=== PATIENT | female | born 1995 | race Hispanic/Latino ===

== ENCOUNTER 2018-05-02 22:47 | Emergency (ER) | payer MEDICAID, OTHER ==
[2018-05-02 23:22] LABS: BASOPHILS % (AUTO) 0.4 % (0.0-5.0); EOSINOPHILS % (AUTO) 1.6 % (0.0-8.0); HEMATOCRIT 31.9 % (36-48); LYMPHOCYTES % (AUTO) 18.8 % (21.0-51.0); MEAN CORPUSCULAR HGB CONC 32.8 g/dL (32.0-36.0); MEAN CORPUSCULAR VOLUME 79.1 fL (80-100); NEUTROPHILS % (AUTO) 73.2 % (40.0-77.0); PLATELET COUNT (AUTO) 320 K/uL (130-400); RED BLOOD CELL COUNT(AUTO) 4.02 MIL/uL (4.00-5.50); WHITE BLOOD COUNT (AUTO) 14.2 K/uL (4.8-10.8)
[2018-05-02 23:29] LABS: CREATININE 0.7 mg/dL (0.5-1.5); POTASSIUM 3.4 mmol/L (3.5-5.1)
[2018-05-02 23:32] LABS: APPEARANCE,URINE Cloudy (CLEAR); BILIRUBIN,URINE Negative (NEGATIVE); COLOR,URINE Yellow (YELLOW); GLUCOSE, URINE (UA) Negative (NEGATIVE); KETONES,URINE Negative (NEGATIVE); LEUKOCYTE ESTERASE ,URINE Small (NEGATIVE); NITRATE,URINE Negative (NEGATIVE); OCCULT BLOOD,URINE Trace (NEGATIVE); PROTEIN,URINE Trace (NEGATIVE)
[2018-05-02 23:34] LABS: ALBUMIN 3.3 g/dL (3.5-5.0); BILIRUBIN,TOTAL 0.4 mg/dL (0.2-1.0); TOTAL PROTEIN, SERUM 7.2 g/dL (6.0-8.3)
[2018-05-02 23:37] LABS: HCG,QUAL RESULT NEGATIVE (NEGATIVE)
[2018-05-02 23:42] LABS: BACTERIA,URINE Many /HPF (None Seen); MUCUS,URINE Moderate LPF (None Seen); SQUAMOUS EPITHELIAL CELL,UR Few /HPF (0-2)
[2018-05-03] MEDS ORDERED: LIDOCAINE HCL 2% VISCOUS 15 ML UDCUP ONE (00:26)
[2018-05-03] MEDS ORDERED: MAG HYDROX/AL HYDROX/SIMETH ES 30 ML SUSP UDCUP ONE (00:26)
== END 2018-05-03 00:58 | disposition home or self-care (01) ==
LOC: EDH 22:47
DX: R10.13 Epigastric pain (principal)
CPT/HCPCS: 36415; 71045; 76705; 80053; 81001; 81025; 83690; 85025; 87088

== ENCOUNTER 2018-09-24 22:26 | Emergency (ER) | payer MEDICAID ==
[2018-09-24 23:58] LABS: BASOPHILS % (AUTO) 0.6 % (0.0-5.0); EOSINOPHILS % (AUTO) 1.1 % (0.0-8.0); HEMATOCRIT 33.2 % (36-48); LYMPHOCYTES % (AUTO) 13.2 % (21.0-51.0); MEAN CORPUSCULAR HEMOGLOBIN 26.9 pg (27.0-33.0); MEAN CORPUSCULAR HGB CONC 32.7 g/dL (32.0-36.0); MEAN CORPUSCULAR VOLUME 82.4 fL (80-100); MONOCYTES % (AUTO) 4.6 % (3.0-13.0); NEUTROPHILS % (AUTO) 80.5 % (40.0-77.0); PLATELET COUNT (AUTO) 293 K/uL (130-400); RED BLOOD CELL COUNT(AUTO) 4.03 MIL/uL (4.00-5.50); RED CELL DISTRIBUTION WIDTH 16.6 % (11.0-15.5); WHITE BLOOD COUNT (AUTO) 12.5 K/uL (4.8-10.8)
[2018-09-25 00:04] LABS: CREATININE 0.6 mg/dL (0.5-1.5); POTASSIUM 3.6 mmol/L (3.5-5.1)
[2018-09-25 00:08] LABS: ALBUMIN 3.1 g/dL (3.5-5.0); BILIRUBIN,TOTAL 0.2 mg/dL (0.2-1.0)
[2018-09-25 00:44] LABS: APPEARANCE,URINE Clear (CLEAR); BILIRUBIN,URINE Negative (NEGATIVE); COLOR,URINE Yellow (YELLOW); GLUCOSE, URINE (UA) Negative (NEGATIVE); KETONES,URINE Negative (NEGATIVE); LEUKOCYTE ESTERASE ,URINE Negative (NEGATIVE); NITRATE,URINE Negative (NEGATIVE); OCCULT BLOOD,URINE Negative (NEGATIVE); PH,URINE 8.5 (5.0-8.0); PROTEIN,URINE Negative (NEGATIVE)
== END 2018-09-25 01:16 | disposition left against medical advice (07) ==
LOC: EDH 22:26
DX: O26.891 Other specified pregnancy related conditions, first trimester (principal); R10.13 Epigastric pain; Z3A.10 10 weeks gestation of pregnancy
CPT/HCPCS: 36415; 80053; 81003; 83690; 85025

== ENCOUNTER 2021-03-18 18:27 | Emergency (ER) | payer MEDICAID ==
[~2021-03-18] VITALS: Ht 160 cm; Wt 82.6 kg
[2021-03-18 19:16] VITALS: BP 135/72
[2021-03-18] MEDS ORDERED: PANTOPRAZOLE 40 MG/VIAL IVP ONE (19:30)
[2021-03-18] MEDS ORDERED: ONDANSETRON 4MG INJ IVP ONE (19:30)
[2021-03-18] MEDS ORDERED: 0.9%NACL 1000ML 1,000 ML IV ONE (19:30)
[2021-03-18] MEDS ORDERED: DICYCLOMINE 20MG (10MG/ML) AMP IM ONE (19:30)
[2021-03-18 19:58] LABS: APPEARANCE,URINE Clear (CLEAR); BILIRUBIN,URINE Negative (NEGATIVE); COLOR,URINE Yellow (YELLOW); GLUCOSE, URINE (UA) Negative (NEGATIVE); KETONES,URINE Trace mg/dL (NEGATIVE); LEUKOCYTE ESTERASE ,URINE Small (NEGATIVE); NITRATE,URINE Negative (NEGATIVE); OCCULT BLOOD,URINE Negative (NEGATIVE); PROTEIN,URINE Negative (NEGATIVE)
[2021-03-18 20:00] LABS: HCG,QUAL RESULT NEGATIVE (NEGATIVE)
[2021-03-18 20:02] LABS: BASOPHILS % (AUTO) 0.4 % (0.0-5.0); EOSINOPHILS % (AUTO) 1.2 % (0.0-8.0); HEMATOCRIT 28.5 % (36-48); LYMPHOCYTES % (AUTO) 21.2 % (21.0-51.0); MEAN CORPUSCULAR HGB CONC 30.5 g/dL (32.0-36.0); MEAN CORPUSCULAR VOLUME 78.5 fL (79-99); MONOCYTES % (AUTO) 6.4 % (3.0-13.0); NEUTROPHILS % (AUTO) 70.4 % (40.0-77.0); PLATELET COUNT (AUTO) 283 K/uL (130-400); RED BLOOD CELL COUNT(AUTO) 3.63 MIL/uL (4.00-5.50); RED CELL DISTRIBUTION WIDTH 14.5 % (11.0-15.5)
[2021-03-18 20:02] LABS: BACTERIA,URINE Few /HPF (None Seen)
[2021-03-18 20:03] LABS: MUCUS,URINE Few LPF (None Seen); SQUAMOUS EPITHELIAL CELL,UR Few /HPF (0-2)
[2021-03-18 20:12] LABS: CREATININE 0.7 mg/dL (0.5-1.5); POTASSIUM 3.7 mmol/L (3.5-5.1)
[2021-03-18 20:16] LABS: ALBUMIN 3.5 g/dL (3.5-5.0); BILIRUBIN,TOTAL 0.4 mg/dL (0.2-1.0); TOTAL PROTEIN, SERUM 7.3 g/dL (6.0-8.3)
[2021-03-18] MEDS ORDERED: IOHEXOL-350 75 ML VIAL IV ONE (20:43)
[2021-03-18] MEDS ORDERED: ACET-3194 PO (21:51)
[2021-03-18] MEDS ORDERED: DICY20TA2 PO (21:51)
[2021-03-18] MEDS ORDERED: PANT40TA54 PO (21:51)
[2021-03-18] MEDS ORDERED: SULF1TAB42 PO (21:51)
[2021-03-18] MEDS ORDERED: ONDA4TAB4 PO (21:51)
[2021-03-18 22:14] VITALS: BP 125/70
== END 2021-03-18 22:16 | disposition home or self-care (01) ==
LOC: EDH 18:27
DX: K80.70 Calculus of gallbladder and bile duct without cholecystitis without obstruction (principal); D64.9 Anemia, unspecified; N39.0 Urinary tract infection, site not specified; N83.209 Unspecified ovarian cyst, unspecified side; Z79.899 Other long term (current) drug therapy; Z98.84 Bariatric surgery status
CPT/HCPCS: 36415; 74177; 76705; 80053; 81001; 81025; 83690; 85025; 87077; 87088; 87186; 96361; 96372; 96374; 96375; 99285; J0500; J2405; J3490; J7030; S0164; C9113; Q9967

== ENCOUNTER 2024-07-22 16:21 | Emergency (ER) | payer SELFPAY ==
[~2024-07-22] VITALS: Ht 154.9 cm; Wt 85.7 kg
[~2024-07-22 16:21] MED LIST: ACET-3194 PO; DICY20TA2 PO; ONDA4TAB4 PO; PANT40TA54 PO; SULF1TAB42 PO
[2024-07-22 17:08] LABS: BASOPHILS # (AUTO) 0.05 K/uL (0.00-0.20); BASOPHILS % (AUTO) 0.4 % (0.0-5.0); EOSINOPHILS # (AUTO) 0.23 K/uL (0.00-0.70); EOSINOPHILS % (AUTO) 1.9 % (0.0-8.0); HEMATOCRIT 34.1 % (36-48); IMMATURE GRANULOCYTE ABSOLUTE 0.03 K/uL (0-1); LYMPHOCYTES # (AUTO) 1.5 K/uL (1.0-4.8); LYMPHOCYTES % (AUTO) 12.6 % (21.0-51.0); MEAN CORPUSCULAR HEMOGLOBIN 26.3 pg (27.0-33.0); MEAN CORPUSCULAR HGB CONC 31.7 g/dL (32.0-36.0); MEAN CORPUSCULAR VOLUME 83.2 fL (79-99); MONOCYTES # (AUTO) 0.7 K/uL (0.1-1.0); MONOCYTES % (AUTO) 5.8 % (3.0-13.0); NEUTROPHILS # (AUTO) 9.6 K/uL (1.8-7.7); NEUTROPHILS % (AUTO) 79.1 % (40.0-77.0); PLATELET COUNT (AUTO) 348 K/uL (130-400); RED CELL DISTRIBUTION WIDTH 14.6 % (11.0-15.5); WHITE BLOOD COUNT (AUTO) 12.2 K/uL (4.8-10.8)
[2024-07-22 17:10] LABS: APPEARANCE,URINE CLEAR (CLEAR); BILIRUBIN,URINE NEGATIVE (NEGATIVE); COLOR,URINE LIGHT-YELLOW (YELLOW); GLUCOSE, URINE (UA) NEGATIVE (NEGATIVE); KETONES,URINE 10 mg/dL (NEGATIVE); LEUKOCYTE ESTERASE ,URINE 500 Leu/uL (NEGATIVE); NITRATE,URINE NEGATIVE (NEGATIVE); OCCULT BLOOD,URINE SMALL (NEGATIVE); PH,URINE 6.5 (5.0-8.0); PROTEIN,URINE 10 mg/dL (NEGATIVE); UROBILINOGEN,URINE 0.2 mg/dL (0.2-1.0)
[2024-07-22 17:11] LABS: ADD UA MICROSCOPIC YES
[2024-07-22 17:15] LABS: CREATININE 0.7 mg/dL (0.5-1.0); POTASSIUM 3.7 mmol/L (3.5-5.1)
[2024-07-22 17:17] LABS: HCG,QUALITATIVE URINE NEGATIVE (NEGATIVE)
[2024-07-22 17:19] LABS: BACTERIA,URINE RARE /HPF (None Seen); MUCUS,URINE RARE LPF (None Seen); SQUAMOUS EPITHELIAL CELL,UR RARE /HPF (0-2); YEAST,URINE BUDDING FEW /HPF (None Seen)
[2024-07-22 17:26] LABS: B-TYPE NATRIURETIC PEPTIDE 7 pg/mL (0-100)
--- NOTE | 2024-07-22 17:58 | HMCIMG ---
INDICATION: CHEST PAIN TECHNIQUE: CHEST 1VW COMPARISON: 05/02/2018 FINDINGS/IMPRESSION: No acute consolidation or pleural effusion. Cardiac silhouette is within normal limits. Mild degenerative changes of the spine. The visualized upper abdomen appears unremarkable.
--- NOTE | 2024-07-22 19:16 | ERN ---
ED Note History of Present Illness Stated Complaint: CHEST PAINS,SOB,NUMBNESS TO LEFT ARM Chief Complaint: Chest Pain Time Seen by MD: 16:53 Time Seen by Midlevel: 17:00 Dictation: 28-year-old female with a history of seizures and anemia coming in complaining of chest pain, that started couple of days ago. Patient has a history of gastric sleeve. States she has felt little nauseous. States he is currently taking antibiotics for her UTI. Denies any fevers, vomiting, headaches, diarrhea, constipation. Allergies: Coded Allergies: No Known Allergies (Unverified Allergy, Unknown, 03/18/21) Home Meds Active Scripts Acetaminophen (Acetaminophen) 650 Mg Tablet.er, 650 MG PO TID for 5 Days, #15 TAB Prov:JOSÉ BROWN 03/18/21 Dicyclomine HCl (Bentyl) 20 Mg Tab, 20 MG PO BID for 5 Days, #10 TAB Prov:JOSÉ BROWN 03/18/21 Pantoprazole Sodium (Pantoprazole Sodium) 40 Mg Tablet.dr, 40 MG PO DAILY, #14 TAB Prov:JOSÉ BROWN 03/18/21 Ondansetron HCl (Zofran) 4 Mg Tablet, 4 MG PO Q8H PRN for NAUSEA/VOMITING for 3 Days, #9 TAB 0 Refills Prov:JOSÉ BROWN 03/18/21 Sulfamethoxazole/Trimethoprim (Bactrim Ds Tablet) 1 Each Tablet, 1 TAB PO BID for 10 Days, #20 TAB 0 Refills Prov:JOSÉ BROWN 03/18/21 Past Medical History Past Medical History: Anemia, Anxiety, Seizure Additional Past Medical Hx: GALLSTONES Surgical History: Surgical History Other: GASTRIC SLEEVE Social History: Negative LMP: Jul 19, 2024 Review of System Dictation Constitutional: Negative for fever,chills, and weight loss Eyes: Negative for injury, pain,redness, and discharge ENT: Negative for injury,pain or swelling Cardiovascular: Positive for chest pain, no palpitations, and no edema Respiratory: Negative for shortness of breath, cough, and wheezing, Abdomen/GI: Negative for abdominal pain, nausea, vomiting, diarrhea, and constipation Back: Negative for injury and pain : Negative for injury, bleeding and discharge MS/Extremity: Negative for injury and deformity Skin: Negative for rash, and discoloration Neuro: Negative for headache, weakness, numbness, tingling, and seizure Psych: Negative for suicide ideation, homicidal ideation, and hallucinations Review of Systems: was completed Initial Vital Sign VS Vital Signs Date Time Temp Pulse Resp B/P (MAP) Pulse Ox O2 Delivery O2 Flow Rate FiO2 07/22/24 16:45 97.9 73 18 114/81 100 Room Air 0 Physical Exam Dictation General: awake, alert, NAD Head/Face: Normocephalic, atraumatic Eyes: PERRL, EOMI, vision at baseline ENT: oral cavity clear, TMs clear, no signs of infection Neck: Trachea midline, supple, no nuchal rigidity Cardiovascular: RRR, normal S1/S2, No MRGs, no JVD Respiratory: CTAB, no respiratory distress, No rales or wheezes Abdomen: Soft, non-tender, non-distended, normal bowel sounds, no guarding or rebound. Skin: Warm, dry, normal turgor, no rash MS/Extremity: Pulses equal, no cyanosis, neurovascular intact, FROM Neuro: COAx4, GCS 15, strength 5/5, CN 2-12 intact, normal cerebellar exam, normal gait, Psych: Normal behavior, mood, and affect normal Results (Laboratory/Radiology) Laboratory/Radiology Laboratory Tests Test 07/22/24 16:59 07/22/24 17:23 White Blood Count 12.2 K/uL (4.8-10.8) H Red Blood Count 4.10 MIL/uL (4.00-5.50) Hemoglobin 10.8 g/dL (12.0-16.0) L Hematocrit 34.1 % (36-48) L Mean Corpuscular Volume 83.2 fL (79-99) Mean Corpuscular Hemoglobin 26.3 pg (27.0-33.0) L Mean Corpuscular Hemoglobin Concent 31.7 g/dL (32.0-36.0) L Red Cell Distribution Width 14.6 % (11.0-15.5) Platelet Count 348 K/uL (130-400) Mean Platelet Volume 11.3 fL (7.5-10.5) H Immature Granulocyte % (Auto) 0.2 % (0-1) Neutrophils (%) (Auto) 79.1 % (40.0-77.0) H Lymphocytes (%) (Auto) 12.6 % (21.0-51.0) L Monocytes (%) (Auto) 5.8 % (3.0-13.0) Eosinophils (%) (Auto) 1.9 % (0.0-8.0) Basophils (%) (Auto) 0.4 % (0.0-5.0) Neutrophils # (Auto) 9.6 K/uL (1.8-7.7) H Lymphocytes # (Auto) 1.5 K/uL (1.0-4.8) Monocytes # (Auto) 0.7 K/uL (0.1-1.0) Eosinophils # (Auto) 0.23 K/uL (0.00-0.70) Basophils # (Auto) 0.05 K/uL (0.00-0.20) Absolute Immature Granulocyte (auto 0.03 K/uL (0-1) Nucleated Red Blood Cells 0.0 % (0.0-0.19) Urine Color LIGHT-YELLOW (YELLOW) Urine Appearance CLEAR (CLEAR) Urine pH 6.5 (5.0-8.0) Urine Specific [place] 1.030 (1.001-1.031) Urine Protein 10 mg/dL (NEGATIVE) H Urine Glucose (UA) NEGATIVE mg/dL (NEGATIVE) Urine Ketones 10 mg/dL (NEGATIVE) H Urine Occult Blood SMALL (NEGATIVE) H Urine Nitrate NEGATIVE (NEGATIVE) Urine Bilirubin NEGATIVE mg/dL (NEGATIVE) Urine Urobilinogen 0.2 mg/dL (0.2-1.0) Urine Leukocyte Esterase 500 Mamta/uL (NEGATIVE) H Urine RBC 11-25 /HPF (0-1) H Urine WBC 11-25 /HPF (0-1) H Urine Squamous Epithelial Cells RARE /HPF (0-2) Urine Bacteria RARE /HPF (None Seen) Urine Yeast FEW /HPF (None Seen) Urine HCG, Qualitative NEGATIVE (NEGATIVE) Sodium Level 141 mmol/L (136-145) Potassium Level 3.7 mmol/L (3.5-5.1) Chloride Level 103 mmol/L (101-111) Carbon Dioxide Level 31 mmol/L (21-32) Blood Urea Nitrogen 21 mg/dL (7-18) H Creatinine 0.7 mg/dL (0.5-1.0) Glomerular Filtration Rate Calc 122 mL/min (>90) Random Glucose 86 mg/dL (70-105) Total Calcium 8.6 mg/dL (8.5-10.1) Total Creatine Kinase 44 U/L (21-232) B-Type Natriuretic Peptide 7 pg/mL (0-100) Troponin I < 0.05 ng/mL (0.00-0.05) Labs Reviewed?: Yes EKG Comment: EKG shows sinus rhythm at a rate of 66. No STEMI interpreted by ER MD ED Course ED Course Orders Procedure Category Date Status Time Vital Signs Per CPOE 07/22/24 Transmitted Routine 16:51 B-Type Natriuretic LAB 07/22/24 Complete Peptide 16:51 Chest 1vw RAD 07/22/24 Resulted 16:51 12 Lead Ekg Tracing- EKG 07/22/24 Logged Technical 16:51 Oxygen By Nc/Pulse Ox CPOE 07/22/24 Transmitted 16:51 Maintain Iv CPOE 07/22/24 Transmitted 16:51 Iv Insertion CPOE 07/22/24 Transmitted 16:51 Cardiac Monitoring CPOE 07/22/24 Transmitted 16:51 Pulse Oximetry With CPOE 07/22/24 Transmitted Vs And Prn 16:51 Cbc With Differential LAB 07/22/24 Complete 16:51 Activity: Br W/Brp CPOE 07/22/24 Transmitted With Assist 16:51 Creatine Kinase, Total LAB 07/22/24 Complete 16:51 Urinalysis Profile LAB 07/22/24 Complete 16:51 Troponin Poc Order LAB 07/22/24 Complete Only 16:51 Bedside Troponin-I LAB.ER 07/22/24 In Process (Poc) 16:51 Basic Metabolic Panel LAB 07/22/24 Complete 16:51 ,Urine Test LAB 07/22/24 Complete 16:51 Culture Urine BETTIE 07/22/24 In Process 17:12 Vital Signs Date Time Temp Pulse Resp B/P (MAP) Pulse Ox O2 Delivery O2 Flow Rate FiO2 07/22/24 16:45 97.9 73 18 114/81 100 Room Air 0 Medical Decision Making MDM MDM: 28-year-old female with a history of seizures and anemia coming in complain ing of chest pain, that started couple of days ago. Patient has a history of gastric sleeve. States she has felt little nauseous. States he is currently taking antibiotics for her UTI. Denies any fevers, vomiting, headaches, diarrhea, constipation. Blood work is unremarkable. EKGs shows sinus rhythm, troponin is negative. Heart score is 0. Discussed findings with the patient. Educated patient to follow up with PCP in 1-2 days and to continue taking her antibiotic for her UTI. Educated to return to the ER if any symptoms worsen. Patient verbalized understanding, answered all questions. Differential diagnosis: ACS, anxiety, anemia Rationale: Tests considered and ordered secondary to shared decision making include: Previous outside records reviewed: Old ER visits. Risk of complication and/or morbidity or mortality of patient management: None Medications-Per medication reconciliation Need for hospitalization: Patient does not meet criteria for hospitalization. Need for emergency major/minor surgery: No There are no social concerns with this patient. Prescription drug management Prescriptions will include symptomatic care Patient's prior external medical records from other ER visits were reviewed by me as indicated. Prior testing and results from previous visits were reviewed. Prior tests were taken into account with medical decision making and resource utilization, independent historian/historians were used to obtain complete medical history. I independently interpreted the test that were performed, results were reviewed by me and considered findings on radiology if ordered. Medical management and examination interpretation discussions were had by me with other qualified healthcare professionals as indicated for the patient's care. DX & DISP Disposition: Discharge Departure Impression: Primary Impression: Anemia Additional Impressions: Non-cardiac chest pain, UTI (urinary tract infecti on) Condition: Stable Additional Instructions: Follow up with your PCP in 1-2 days. Continue taking Referrals: JESI TRAN MD (PCP) Time of Disposition: 19:31 I have reviewed the case, and I agree with, Diagnosis and Plan HEMAL LAWLER NP Jul 22, 2024 19:16
--- NOTE | 2024-07-22 20:11 | EKG ---
[facility] Test Date: 2024-07-22 Test Time: 16:31:59 Pat Name: NICK GALVEZ Department: [facility] Room: Gender: F Proposal Rep: [id number] : 1995 Requested By: MONIKA PURVIS Order Number: [id number] Reading MD: Soco Wilson Measurements Intervals [place] Rate: 66 P: 56 HI: 138 QRS: 47 QRSD: 96 T: 52 QT: 390 QTc: 409 Interpretive Statements Sinus rhythm No previous ECG available for comparison Electronically Signed On 07-24-2024 16:03:14 [employer]BACK SPECIALIST by Soco Wilson Please click the below link to view image of tracing.
[2024-07-22 20:12] VITALS: BP 138/75; PULSE 68; RESP 16; TEMP 97.9; O2SAT 98
== END 2024-07-22 20:17 | disposition home or self-care (01) ==
LOC: EDH 16:21
DX: R07.89 Other chest pain (principal); N39.0 Urinary tract infection, site not specified; D64.9 Anemia, unspecified; Z79.899 Other long term (current) drug therapy; Z98.890 Other specified postprocedural states
CPT/HCPCS: 36415; 71045; 80048; 81001; 81025; 82550; 83880; 84484; 85025; 87086; 93005; 99285

== ENCOUNTER 2024-10-20 19:40 | Emergency (ER) | payer BC ==
[~2024-10-20] VITALS: Ht 170.2 cm; Wt 79.4 kg
--- NOTE | 2024-10-20 19:47 | NUR ---
UA CUP PROVIDED
[2024-10-20] MEDS ORDERED: HYDROcodone/APAP 5/325 1 TAB TABLET PO ONE (20:00)
[2024-10-20 20:06] VITALS: O2SAT 99
--- NOTE | 2024-10-20 20:12 | NUR ---
PATIENT C/O RLQ PAIN WITH EVERY MENSES FOR THE LAST 3 MONTHS. PAIENT STATES THE PAIN SUBSIDES AT THE END OF HER MENSTRUAL CYCLE. PATIENT STATES THE PAIN IS ACCOMPANIED [place] OCCASSIONAL NAUSEA, NONE AT THIS TIME. NO OTHER COMPLAINTS
--- NOTE | 2024-10-20 20:12 | ERN ---
ED Note History of Present Illness Stated Complaint: RIGHT LOWER QUADRANT PAIN Chief Complaint: Abdominal Pain Time Seen by MD: 19:42 Dictation: PATIENT IS A 28-YEAR-OLD FEMALE HERE WITH COMPLAINTS OF RIGHT LOWER QUADRANT/PELVIC PAIN THAT SHE HAS INTERMITTENTLY AFTER EVERY. THAT AFFECTS AMBULATION FOR THE LAST 3-4 MONTHS. NO FEVER NO CHILLS NO NAUSEA VOMITING NO CHANGE IN BOWEL OR BLADDER FUNCTION. SHE STATES IT ALWAYS OCCURS WITH HER MENSES. SHE STATES SHE HAS BEEN ATTEMPTING GET TO SEE HER PRODUCTION CORRUGATOR DOCTOR, DR. INFANTE HAS NOT BEEN SUCCESSFUL. SHE DID SAY SHE SAW HER PRIMARY CARE DOCTOR TODAY WHO DID X-RAYS OF HER HIP AND PELVIS TOLD HER EVERYTHING WAS FINE AND GAVE HER PAIN MEDS. SHE IS HERE FOR FURTHER EVALUATION AND TREATMENT. Allergies: Coded Allergies: No Known Allergies (Unverified Allergy, Unknown, 03/18/21) Home Meds Active Scripts Acetaminophen (Acetaminophen) 650 Mg Tablet.er, 650 MG PO TID for 5 Days, #15 TAB Prov:JOSÉ BROWN 03/18/21 Dicyclomine HCl (Bentyl) 20 Mg Tab, 20 MG PO BID for 5 Days, #10 TAB Prov:JOSÉ BROWN 03/18/21 Pantoprazole Sodium (Pantoprazole Sodium) 40 Mg Tablet.dr, 40 MG PO DAILY, #14 TAB Prov:JOSÉ BROWN 03/18/21 Ondansetron HCl (Zofran) 4 Mg Tablet, 4 MG PO Q8H PRN for NAUSEA/VOMITING for 3 Days, #9 TAB 0 Refills Prov:JOSÉ BROWN 03/18/21 Sulfamethoxazole/Trimethoprim (Bactrim Ds Tablet) 1 Each Tablet, 1 TAB PO BID for 10 Days, #20 TAB 0 Refills Prov:JOSÉ BROWN 03/18/21 Past Medical History Past Medical History: Anemia, Anxiety, Seizure Additional Past Medical Hx: GALLSTONES, OVARIAN CYST Surgical History: Surgical History Other: GASTRIC SLEEVE Social History: Negative LMP: Oct 14, 2024 RN Note Reviewed/Agreed w/PFSH: Yes Review of System Dictation CONSTITUTIONAL: NEGATIVE EXCEPT FOR HPI HEAD/FACE: NEGATIVE EXCEPT FOR HPI EENT: NEGATIVE EXCEPT FOR HPI RESPIRATORY: NEGATIVE EXCEPT FOR HPI GASTROINTESTINAL/ABDOMINAL: NEGATIVE EXCEPT FOR HPI RIGHT ABDOMINAL/PELVIC PAIN RADIATES DOWN LEG GENITOURINARY: NEGATIVE EXCEPT FOR HPI MUSCULOSKELETAL: NEGATIVE EXCEPT FOR HPI INTEGUMENTARY: NEGATIVE EXCEPT FOR HPI NEUROLOGICAL/PSYCH: NEGATIVE EXCEPT FOR HPI HEMATOLOGIC/LYMPHATIC: NEGATIVE EXCEPT FOR HPI ALL SYSTEMS NEGATIVE, EXCEPT NOTED ABOVE. 13 POINT REVIEW OF SYSTEMS ASSESSED AND ALL NEGATIVE EXCEPT FOR ABOVE. Initial Vital Sign VS Vital Signs Date Time Temp Pulse Resp B/P (MAP) Pulse Ox O2 Delivery O2 Flow Rate FiO2 10/20/24 19:41 98.1 78 18 139/85 Room Air 10/20/24 20:06 99 0 21 Physical Exam Dictation VITAL SIGNS REVIEWED GENERAL APPEARANCE: ALERT, ORIENTED X 3, MODERATE ACUTE DISTRESS, WELL DEVELOPED, NOURISHED. HEAD AND FACE: NON-TRAUMATIC. EYES: PERRL, PINK CONJUNCTIVAS, EYELID NO TRAUMA, ANTERIOR CHAMBER WITH ARCUS SENILIS. EARS: PINNAS INTACT AND NO SIGNS OF TRAUMA OR ERYTHEMA EAR CANALS CLEAR AND NO DISCHARGE TM NO ERYTHEMA NOSE: NO DISCHARGE, NO BLEEDING. OROPHARYNX: MOUTH NORMAL, TONGUE PINK, PHARYNX CLEAR,NO ERYTHEMA, TONSILS NO EXUDATES, NO ABSCESSES NOTED, MUCOUS MEMBRANE MOIST NECK: SUPPLE, NON-TENDER, NO THYROMEGALY, NO MASSES, NO JVD, NO BRUITS BREAST:DEFERRED CHEST:NO TENDERNESS, NO CREPITUS, NO PARADOXICAL MOVEMENT, NO RETRACTIONS LUNGS:CLEAR, WELL-VENTILATED, SYMMETRIC, NO RALES, NO WHEEZING, NO RHONCHI, NO STRIDOR, GOOD BREATH SOUNDS BILATERALLY HEART: REGULAR RATE, REGULAR RHYTHM, NO MURMUR, NO GALLOPS VASCULAR: NO PERIPHERAL EDEMA, ABDOMEN: SOFT, POSITIVE BOWEL SOUNDS, NONDISTENDED, NO GUARDING, MODERATE RIGHT LOWER QUADRANT/PELVIC PAIN. RECTAL: DEFERRED GENITAL: DEFERRED NEUROLOGICAL: NORMAL SPEECH, MOTOR FUNCTION INTACT, SENSORY FUNCTION INTACT MUSCULOSKELETAL: NECK NONTENDER, FULL RANGE OF MOTION, BACK NONTENDER, FULL RA NGE OF MOTION, EXTREMITIES: NONTENDER, FULL RANGE OF MOTION SKIN: COLOR PINK, DRY, NO TURGOR, NO RASH, NO LACERATIONS, NO ABRASIONS, NO CONTUSIONS. LYMPHATIC: DEFERRED Results (Laboratory/Radiology) Laboratory/Radiology Laboratory Tests Test 10/20/24 20:12 White Blood Count 8.0 K/uL (4.8-10.8) Red Blood Count 3.64 MIL/uL (4.00-5.50) L Hemoglobin 9.9 g/dL (12.0-16.0) L Hematocrit 31.1 % (36-48) L Mean Corpuscular Volume 85.4 fL (79-99) Mean Corpuscular Hemoglobin 27.2 pg (27.0-33.0) Mean Corpuscular Hemoglobin Concent 31.8 g/dL (32.0-36.0) L Red Cell Distribution Width 14.3 % (11.0-15.5) Platelet Count 266 K/uL (130-400) Mean Platelet Volume 11.4 fL (7.5-10.5) H Immature Granulocyte % (Auto) 0.4 % (0-1) Neutrophils (%) (Auto) 65.1 % (40.0-77.0) Lymphocytes (%) (Auto) 22.6 % (21.0-51.0) Monocytes (%) (Auto) 7.3 % (3.0-13.0) Eosinophils (%) (Auto) 3.7 % (0.0-8.0) Basophils (%) (Auto) 0.9 % (0.0-5.0) Neutrophils # (Auto) 5.2 K/uL (1.8-7.7) Lymphocytes # (Auto) 1.8 K/uL (1.0-4.8) Monocytes # (Auto) 0.6 K/uL (0.1-1.0) Eosinophils # (Auto) 0.30 K/uL (0.00-0.70) Basophils # (Auto) 0.07 K/uL (0.00-0.20) Absolute Immature Granulocyte (auto 0.03 K/uL (0-1) Nucleated Red Blood Cells 0.0 % (0.0-0.19) Sodium Level 140 mmol/L (136-145) Potassium Level 3.8 mmol/L (3.5-5.1) Chloride Level 103 mmol/L (101-111) Carbon Dioxide Level 32 mmol/L (21-32) Blood Urea Nitrogen 17 mg/dL (7-18) Creatinine 0.7 mg/dL (0.5-1.0) Glomerular Filtration Rate Calc 122 mL/min (>90) Random Glucose 85 mg/dL (70-105) Total Calcium 8.6 mg/dL (8.5-10.1) Serum Test, Qualitative NEGATIVE (NEGATIVE) 8/ULTRASOUND DEMONSTRATES NORMAL FOLLICLES, NO OVARIAN MASSES, POSITIVE FLOW TO OVARY. Labs Reviewed?: Yes ED Course ED Course Orders Procedure Category Date Status Time Us Pelvic Non-Ob US 10/20/24 Taken Limited 19:57 Hydrocodone/Apap PHA 10/20/24 Complete 5/325 (Corydon 5/325mg) 20:00 Cbc With Differential LAB 10/20/24 Complete 20:02 Basic Metabolic Panel LAB 10/20/24 Complete 20:02 Testing, LAB 10/20/24 Complete Serum Hcg 20:02 Current Medications Medications (Trade) Dose Ordered Sig/Demetrio Route PRN Reason Start Time Stop Time Status Last Admin Dose Admin Acetaminophen/ Hydrocodone Bitart (NORco 5/325MG) 1 tab ONCE ONCE PO 10/20/24 20:00 10/20/24 20:02 DC Vital Signs Date Time Temp Pulse Resp B/P (MAP) Pulse Ox O2 Delivery O2 Flow Rate FiO2 10/20/24 20:59 98.1 80 18 116/69 Room Air* 0 21 10/20/24 20:06 98.4 70 18 107/69 99 Room Air* 0 21 10/20/24 19:41 98.1 78 18 139/85 Room Air 2108/PATIENT WILL BE DISCHARGED HOME WITH INTERMITTENT RIGHT PELVIC PAIN. SHE WILL BE GIVEN MEDICATIONS FOR PAIN, TOLD TO SEE HER PRODUCTION CORRUGATOR DOCTOR ON WEDNESDAY OR WEDNESDAY FOR FOLLOW UP AND MANAGEMENT SINCE THE PAIN FOLLOWS A PATTERN OF OCCURRING WITH HER MENSES. Medical Decision Making MDM MEDICAL DECISION-MAKING BASED ON BASIC LABS TO INCLUDE RULING OUT PELVIC ULTRASOUND PERFORMED NO POSITIVE FINDINGS PATIENT MADE HAVE LEG SPASM DUE TO UTERINE CONTRACTIONS VERSUS ENDOMETRIOSIS SHE WAS TOLD TO SEE HER PRODUCTION CORRUGATOR DOCTOR, DR. INFANTE WEDNESDAY WITHOUT FAIL FOR FOLLOW UP AND MANAGEMENT DX & DISP Disposition: Discharge Departure Impression: Primary Impression: Dysmenorrhea Additional Impression: Right leg pain Condition: Stable Scripts Ibuprofen (Ibuprofen 800 mg Tab) 800 Mg Tab 800 MG PO Q8H PRN for fever or pain, #30 TAB 0 Refills Prov: RONALD WELLINGTON [employer] 10/20/24 Additional Instructions: FOLLOW-UP WITH PRIMARY CARE PROVIDER IN 1 TO 2 DAYS. TAKE MEDICATIONS DIRECTED HERE IN THE EMERGENCY ROOM. OKAY TO CONTINUE HOME MEDICATIONS UNLESS OTHERWISE DISCUSSED DURING YOUR VISIT IN THE EMERGENCY ROOM TODAY. RETURN TO YOUR NEAREST EMERGENCY ROOM IF SYMPTOMS WORSEN OR IF THERE IS NO IMPROVEMENT. CALL 911 IF YOU NEED IMMEDIATE ASSISTANCE. TAKE TYLENOL OR MOTRIN [id number] NEEDED AND IF NO CONTRAINDICATIONS ARE PRESENT. INCREASE ORAL HYDRATION. A WOUND CULTURE OR URINE CULTURE WAS ORDERED HERE IN THE EMERGENCY ROOM DEPARTMENT PLEASE FOLLOW-UP WITH PRIMARY CARE PROVIDER AND ADVISE THEM TO GET REPEAT PORTS FROM OUR FACILITY. IF YOU HAD ANY NICOLE WRAP/SPLINTS THAT WERE APPLIED HERE, PLEASE DO NOT REMOVE THEM UNTIL YOU SEE YOUR PRIMARY CARE OR SPECIALTY. TAKE IBUPROFEN EVERY 8 HOURS WITH FOOD FOR THE NEXT THREE DAYS. WARM COMPRESSES TO PAIN THREE TO 4 TIMES A DAY. SEE YOUR PRODUCTION CORRUGATOR DOCTOR ON WEDNESDAY OR WEDNESDAY WITHOUT FAIL FOR FOLLOW UP AND MANAGEMENT. PLEASE EXPLAIN TO HIM THAT THE PAIN TO YOUR PELVIS AND YOUR LEG WITH YOUR PERIOD Referrals: JESI TRAN MD (PCP) Time of Disposition: 21:14 I have reviewed the case, and I agree with, Diagnosis and Plan RONALD WELLINGTON NP Oct 20, 2024 20:12
[2024-10-20 20:19] LABS: BASOPHILS # (AUTO) 0.07 K/uL (0.00-0.20); BASOPHILS % (AUTO) 0.9 % (0.0-5.0); EOSINOPHILS % (AUTO) 3.7 % (0.0-8.0); HEMATOCRIT 31.1 % (36-48); IMMATURE GRANULOCYTE ABSOLUTE 0.03 K/uL (0-1); LYMPHOCYTES # (AUTO) 1.8 K/uL (1.0-4.8); LYMPHOCYTES % (AUTO) 22.6 % (21.0-51.0); MEAN CORPUSCULAR HEMOGLOBIN 27.2 pg (27.0-33.0); MEAN CORPUSCULAR HGB CONC 31.8 g/dL (32.0-36.0); MEAN CORPUSCULAR VOLUME 85.4 fL (79-99); MONOCYTES # (AUTO) 0.6 K/uL (0.1-1.0); MONOCYTES % (AUTO) 7.3 % (3.0-13.0); NEUTROPHILS # (AUTO) 5.2 K/uL (1.8-7.7); NEUTROPHILS % (AUTO) 65.1 % (40.0-77.0); PLATELET COUNT (AUTO) 266 K/uL (130-400); RED BLOOD CELL COUNT(AUTO) 3.64 MIL/uL (4.00-5.50); RED CELL DISTRIBUTION WIDTH 14.3 % (11.0-15.5)
[2024-10-20 20:28] LABS: CREATININE 0.7 mg/dL (0.5-1.0); POTASSIUM 3.8 mmol/L (3.5-5.1)
[2024-10-20 20:59] VITALS: BP 116/69; PULSE 80; RESP 18; TEMP 98
[2024-10-20] MEDS ORDERED: IBUP-2077 PO (21:14)
--- NOTE | 2024-10-20 21:29 | HMCIMG ---
US PELVIC NON-OB LIMITED HISTORY: RIGHT LOWER PELVIC PAIN WORSE WITH AMBULATION TECHNIQUE: Real-time pelvic ultrasound was performed. FINDINGS: The uterus measures 7 cm. Heterogeneous uterus. The endometrium was not well visualized. Right ovary measures 2.5 cm and left ovary measures 2.5 cm, both with vascular flow. No free fluid seen in the cul-de-sac. IMPRESSION: No adnexal mass is seen. Endometrium was not well visualized.
== END 2024-10-20 21:44 | disposition home or self-care (01) ==
LOC: EDH 19:40
DX: N94.6 Dysmenorrhea, unspecified (principal); M79.604 Pain in right leg; Z79.899 Other long term (current) drug therapy
CPT/HCPCS: 36415; 76857; 80048; 84703; 85025; 99284